=== PATIENT | female | born 1995 | race Asian ===

== ENCOUNTER 2017-06-26 20:51 | Emergency (ER) | payer SELFPAY ==
[~2017-06-26] VITALS: Ht 160 cm; Wt 63.5 kg
[~2017-06-26 20:51] MED LIST: NKM
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
[2017-06-26 23:01] VITALS: BP 113/74
[2017-06-27] MEDS ORDERED: IBUPROFEN600 MG ORAL (00:49)
[2017-06-27] MEDS ORDERED: CYCLOBENZAPRINE10 MG ORAL (00:49)
[2017-06-27 00:55] VITALS: BP 115/75
[2017-06-27 00:56] VITALS: BP 115/75
--- NOTE | 2017-06-27 09:53 | Diagnostic Imaging Report ---
Indication: Neck pain Technique: CT cervical spine was performed utilizing automated exposure control without intravenous contrast material. Axial and coronal images were generated. CT dose: Total DLP 322 mGycm; CTDI vol 14.0 mGy Comparison: 06/26/2017 Findings: There is no acute fracture. Cervical alignment is within normal limits. Prevertebral soft tissues are normal. Visualized lung apices are clear. Impression: No acute fracture or cervical malalignment. The CT scanner at [facility] is accredited by the [employer] and the scans are performed using protocols designed to limit radiation exposure to as low as reasonably achievable to attain images of sufficient resolution adequate for diagnostic evaluation.
--- NOTE | 2017-06-27 09:54 | Diagnostic Imaging Report ---
Indication: Neck pain Technique: Cervical spine 6 views Comparison: None Findings: There is no acute fracture. There is reversal of the cervical lordosis. Prevertebral soft tissues are within normal limits. Bone mineralization is normal. Impression: No acute fracture. Reversal of the cervical lordosis may be positional or related to muscle spasm. Clinical correlation recommended.
--- NOTE | 2017-06-27 09:59 | Diagnostic Imaging Report ---
Indication: Back pain Technique: Thoracic spine 2 views Comparison: None Findings: The upper thoracic spine is partially obscured. There is no gross fracture. Thoracic alignment is within normal limits. There is slight curvature of the mid and lower thoracic spine convex to the right. Impression: No gross fracture.
== END 2017-06-27 00:56 | disposition home or self-care (01) ==
LOC: EDBD 20:51 → EMR 21:15
DX: M54.2 Cervicalgia (principal); M54.9 Dorsalgia, unspecified; V43.52XA Car driver injured in collision with other type car in traffic accident, initial encounter; Y92.410 Unspecified street and highway as the place of occurrence of the external cause
CPT/HCPCS: 72050; 72070; 72125; 81025; 99284